=== PATIENT | female | born 1970 | race Caucasian/White ===

== ENCOUNTER 2017-05-05 18:16 | Emergency (ER) | payer SELFPAY ==
[2017-05-05 18:29] VITALS: BP 126/72
[2017-05-05] MEDS ORDERED: Bacitracin Oint 1 GM U/D Packet TOP ONE (18:35)
[2017-05-05] MEDS ORDERED: Lidocaine 1% 30 ML SDV INJECT ONE (18:35)
[2017-05-05] MEDS ORDERED: Diphtheria,Pertussis(Acell),Tetanus Vaccine 0.5 ML SDV IM ONE (18:36)
--- NOTE | 2017-05-05 18:36 | EDM.PDOC ---
ED HPI GENERAL MEDICAL PROBLEM - General Chief Complaint: Laceration Stated Complaint: CUT INDEX FINGER [id number] Time Seen by Provider: 05/05/17 18:36 Source of Information: Reports: Patient, RN, RN Notes Reviewed History Limitations: Reports: No Limitations - History of Present Illness INITIAL COMMENTS - FREE TEXT/NARRATIVE: Pt presents to the ER with c/o laceration to the right index finger. She states she was shoveling snow and caught her finger on a metal sign. She states she has not had a tetanus shot for about 20 years. Onset: Today, Sudden Location: Reports: Upper Extremity, Right Quality: Reports: Sharp Severity: Mild Improves with: Reports: None Worsens with: Reports: None - Related Data Allergies Allergy/AdvReac Type Severity Reaction Status Date / Time acetaminophen Allergy Rash Verified 05/05/17 18:24 [From Tylenol-Codeine] atorvastatin calcium Allergy Muscle Verified 05/05/17 18:24 [From Lipitor] Aches codeine phosphate Allergy Rash Verified 05/05/17 18:24 [From Tylenol-Codeine] pregabalin [From Lyrica] Allergy Rash Verified 05/05/17 18:24 propoxyphene napsylate Allergy Rash Verified 05/05/17 18:24 [From Darvocet-N] sumatriptan [From Imitrex] Allergy Headache Verified 05/05/17 18:24 sumatriptan succinate Allergy Headache Verified 05/05/17 18:24 [From Imitrex] Home Meds: Home Meds Levothyroxine 112 mcg PO DAILY 06/09/14 [History] Lisinopril [Prinivil] 10 mg PO DAILY 06/09/14 [History] Propranolol HCl 40 mg PO DAILY 06/09/14 [History] oxyCODONE HCl/Acetaminophen [Percocet 10-325 MG] 1 - 2 tab PO Q4H PRN 11/12/14 [ History] Past Medical History HEENT History: Reports: Impaired Vision, Other (See Below) Other HEENT History: WEARS CORRECTIVE LENSES - GLASSES Cardiovascular History: Reports: High Cholesterol, Hypertension Gastrointestinal History: Reports: Other (See Below) Other Gastrointestinal History: Iscemic Colitis Musculoskeletal History: Reports: Fracture Other Musculoskeletal History: R ANKLE Endocrine/Metabolic History: Reports: Other (See Below) Other Endocrine/Metabolic History: HYPOTHYRIODISM Oncologic (Cancer) History: Reports: Cervix Other Oncologic History: hysterectomy - Infectious Disease History Infectious Disease History: Reports: Hepatitis C - Past Surgical History Endocrine Surgical History: Reports: Thyroidectomy Other Endocrine Surgeries/Procedures: Partial Musculoskeletal Surgical History: Reports: Other (See Below) Other Musculoskeletal Surgeries/Procedures:: Foot surgery Social & Family History - Family History Family Medical History: Noncontributory - Tobacco Use Smoking Status *Q: Current Every Day Smoker Years of Tobacco use: 30 Packs/Tins Daily: 0.5 Used Tobacco, but Quit: No Month Tobacco Last Used: july Second Hand Smoke Exposure: No - Caffeine Use Caffeine Use: Reports: Soda - Alcohol Use Days Per Week of Alcohol Use: 0 - Recreational Drug Use Recreational Drug Use: No Drug Use in Last 12 Months: No ED ROS GENERAL - Review of Systems Review Of Systems: ROS reveals no pertinent complaints other than HPI. ED EXAM, SKIN/RASH Exam: See Below Exam Limited By: No Limitations General Appearance: Alert, WD/WN, No Apparent Distress Eye Exam: Bilateral Eye: EOMI, Normal Inspection Ears: Normal External Exam, Hearing Grossly Normal Nose: Normal Inspection Throat/Mouth: Normal Inspection, Normal Voice, No Airway Compromise Head: Atraumatic, Normocephalic Neck: Normal Inspection Respiratory/Chest: No Respiratory Distress, Lungs Clear, Normal Breath Sounds, No Accessory Muscle Use, Chest Non-Tender Cardiovascular: Normal Peripheral Pulses, Regular Rate, Rhythm, No Edema, No Gallop, No JVD, No Murmur, No Rub Peripheral Pulses: 2+: Radial (L), Radial (R) GI/Abdominal: Normal Bowel Sounds, Soft, Non-Tender, No Organomegaly, No Distention, No Abnormal Bruit, No Mass (Female) Exam: Deferred Rectal (Female) Exam: Deferred Back Exam: Normal Inspection, Full Range of Motion Extremities: Normal Inspection, Normal Range of Motion, Non-Tender, No Pedal Edema, Normal Capillary Refill Neurological: Alert, Oriented, CN II-XII Intact, Normal Cognition, Normal Gait, Normal Reflexes, No Motor/Sensory Deficits Psychiatric: Normal Affect, Normal Mood Skin: Warm, Dry, Normal Color, No Rash, Wound/Incision (horizontal laceration, 2.0cm on the right index finger, just below distal joint.) Location, Skin: Upper Extremity, Right Lymphatic: No Adenopathy ED SKIN PROCEDURES - Laceration/Wound Repair Right Distal Finger Lac/Wound length In cm: 2 Appearance: Subcutaneous, Linear Distal NVT: Neuro & Vascular Intact, No Tendon Injury Anesthetic Type: Local Local Anesthesia - Lidocaine (Xylocaine): 1% Plain Local Anesthetic Volume: 3cc Skin Prep: Chlorhexidine (Hibiciens) Exploration/Debridement/Repair: Wound Explored, In a Bloodless Field, Explored to Base, No Foreign Material Found Closed with: Sutures Suture Size: 4-0 # of Sutures: 3 Suture Type: Nylon Drain Placement: No Sterile Dressing Applied: Nurse Tetanus Status Addressed: Yes (Tetanus vaccination given) Complications: No Course - Vital Signs Last Recorded V/S: Last Vital Signs Temp 97.0 F 05/05/17 18:28 Pulse 80 05/05/17 18:28 Resp 16 05/05/17 18:28 BP 126/72 05/05/17 18:28 Pulse Ox 96 05/05/17 18:28 - Orders/Labs/Meds Orders: Active Orders 24 hr Category Date Time Status Vaccines to be Administered [RC] PER UNIT ROUTINE Care 05/05/17 18:36 Active Meds: Medications Discontinued Medications Generic Name Dose Route Start Last Admin Trade Name Freq PRN Reason Stop Dose Admin Bacitracin 1 dose 05/05/17 18:35 05/05/17 18:53 Bacitracin Oint 1 Gm TOP 05/05/17 18:36 1 dose ONETIME ONE Administration Diphtheria/Tetanus/Acell Pertussis 0.5 ml 05/05/17 18:36 05/05/17 18:51 Adacel IM 05/05/17 18:37 0.5 ml .ONCE ONE Administration Lidocaine HCl 30 ml 05/05/17 18:35 05/05/17 18:51 Xylocaine-Mpf 1% INJECT 05/05/17 18:36 30 ml ONETIME ONE Administration Departure - Departure Time of Disposition: 19:00 Disposition: Home, Self-Care 01 Clinical Impression: Laceration - Discharge Information Instructions: Laceration Care, Adult, [id number], Stitches, [place], or Adhesive Wound Closure, [id number] Forms: ED Department Discharge Additional Instructions: Keep area clean and dry. Make an appointment to have sutures removed in 7-10 days. - My Orders Last 24 Hours: My Active Orders 05/05/17 18:36 Vaccines to be Administered [RC] PER UNIT ROUTINE - Assessment/Plan Last 24 Hours: My Active Orders 05/05/17 18:36 Vaccines to be Administered [RC] PER UNIT ROUTINE
== END 2017-05-05 19:04 | disposition home or self-care (01) ==
LOC: DL.ED 18:16
DX: S61.210A Laceration without foreign body of right index finger without damage to nail, initial encounter (principal); F17.210 Nicotine dependence, cigarettes, uncomplicated; I10 Essential (primary) hypertension; Z88.6 Allergy status to analgesic agent; Z88.5 Allergy status to narcotic agent; Z88.8 Allergy status to other drugs, medicaments and biological substances; Z79.899 Other long term (current) drug therapy; Z23 Encounter for immunization; W22.8XXA Striking against or struck by other objects, initial encounter
CPT/HCPCS: 12001; 90471; 90715; 99282

== ENCOUNTER 2017-07-01 18:46 | Emergency (ER) | payer SELFPAY ==
[2017-07-01] MEDS ORDERED: Sodium Chloride 0.9% 1,000 ML IV ONE (20:01)
[2017-07-01] MEDS ORDERED: Ondansetron 4 MG/2 ML SDV IV ONE (20:02)
[2017-07-01] MEDS ORDERED: diphenhydrAMINE 50 MG/ML SDV IVPUSH ONE ×2 (20:02→22:10)
[2017-07-01] MEDS ORDERED: HYDROmorphone 1 MG/ML Syringe IVPUSH ONE ×2 (20:03→20:41)
--- NOTE | 2017-07-01 20:49 | EDM.PDOC ---
ED HPI GENERAL MEDICAL PROBLEM - General Chief Complaint: Headache Stated Complaint: MIGRAINE [id number] Time Seen by Provider: 07/01/17 19:15 Source of Information: Reports: Patient History Limitations: Reports: No Limitations - History of Present Illness INITIAL COMMENTS - FREE TEXT/NARRATIVE: C/O migraine headach, similar to previous though none for few years. Left temporal radiating to left jaw, sharp throbbing, light sensitive, nausea, emesis x2. Started today. Onset: Today Treatments SO[employer]ER [employer]: Reports: NSAIDS Left Temporal Head Pain Score (Numeric/FACES): 8 - Related Data Allergies Allergy/AdvReac Type Severity Reaction Status Date / Time acetaminophen Allergy Rash Verified 07/01/17 19:08 [From Tylenol-Codeine] atorvastatin calcium Allergy Muscle Verified 07/01/17 19:08 [From Lipitor] Aches codeine phosphate Allergy Rash Verified 07/01/17 19:08 [From Tylenol-Codeine] pregabalin [From Lyrica] Allergy Rash Verified 07/01/17 19:08 propoxyphene napsylate Allergy Rash Verified 07/01/17 19:08 [From Darvocet-N] sumatriptan [From Imitrex] Allergy Headache Verified 07/01/17 19:08 sumatriptan succinate Allergy Headache Verified 07/01/17 19:08 [From Imitrex] Home Meds: Home Meds Levothyroxine 112 mcg PO DAILY 06/09/14 [History] Lisinopril [Prinivil] 10 mg PO DAILY 06/09/14 [History] Propranolol HCl 40 mg PO DAILY 06/09/14 [History] oxyCODONE HCl/Acetaminophen [Percocet 10-325 MG] 1 - 2 tab PO Q4H PRN 11/12/14 [ History] Past Medical History HEENT History: Reports: Impaired Vision, Other (See Below) Other HEENT History: WEARS CORRECTIVE LENSES - GLASSES Cardiovascular History: Reports: High Cholesterol, Hypertension Gastrointestinal History: Reports: Other (See Below) Other Gastrointestinal History: Iscemic Colitis Musculoskeletal History: Reports: Fracture Other Musculoskeletal History: R ANKLE Endocrine/Metabolic History: Reports: Other (See Below) Other Endocrine/Metabolic History: HYPOTHYRIODISM Oncologic (Cancer) History: Reports: Cervix Other Oncologic History: hysterectomy - Infectious Disease History Infectious Disease History: Reports: Hepatitis C - Past Surgical History Endocrine Surgical History: Reports: Thyroidectomy Other Endocrine Surgeries/Procedures: Partial Musculoskeletal Surgical History: Reports: Other (See Below) Other Musculoskeletal Surgeries/Procedures:: Foot surgery Social & Family History - Family History Family Medical History: Noncontributory - Tobacco Use Smoking Status *Q: Current Every Day Smoker Years of Tobacco use: 3 Packs/Tins Daily: 10 Used Tobacco, but Quit: No Month Tobacco Last Used: july Second Hand Smoke Exposure: No - Caffeine Use Caffeine Use: Reports: Coffee, Soda - Alcohol Use Days Per Week of Alcohol Use: 0 - Recreational Drug Use Recreational Drug Use: No Drug Use in Last 12 Months: No ED ROS GENERAL - Review of Systems Review Of Systems: ROS reveals no pertinent complaints other than HPI. - Physical Exam Exam: See Below Exam Limited By: No Limitations General Appearance: Alert, Mild Distress Eye Exam: Bilateral Eye: EOMI, Normal Fundi, PERRL Ears: Normal External Exam, Normal TMs Nose: Nasal Deformity Throat/Mouth: Normal Inspection Neck: Normal Inspection, Full Range of Motion Respiratory/Chest: No Respiratory Distress, Lungs Clear, Normal Breath Sounds Cardiovascular: Normal Peripheral Pulses, Regular Rate, Rhythm GI/Abdominal: Normal Bowel Sounds, Soft Neuro Exam (Abbreviated): Alert, Oriented, Normal Cognition, No Motor/Sensory Deficits Back Exam: Normal Inspection Extremities: Normal Inspection Psychiatric: Flat Affect Skin Exam: Warm, Dry, Intact, Normal Color Course - Vital Signs Last Recorded V/S: Last Vital Signs Temp 98.2 F 07/01/17 21:24 Pulse 79 07/01/17 21:37 Resp 19 07/01/17 21:24 BP 167/98 H 07/01/17 21:37 Pulse Ox 98 07/01/17 21:24 - Orders/Labs/Meds Meds: Medications Discontinued Medications Generic Name Dose Route Start Last Admin Trade Name Freq PRN Reason Stop Dose Admin Diphenhydramine HCl 25 mg 07/01/17 20:02 07/01/17 20:19 Benadryl IVPUSH 07/01/17 20:03 25 mg ONETIME ONE Administration Diphenhydramine HCl 25 mg 07/01/17 22:10 07/01/17 22:21 Benadryl IVPUSH 07/01/17 22:11 25 mg ONETIME ONE Administration Hydromorphone HCl 1 mg 07/01/17 20:03 07/01/17 20:19 Dilaudid IVPUSH 07/01/17 20:04 1 mg ONETIME ONE Administration Hydromorphone HCl 1 mg 07/01/17 20:41 07/01/17 20:46 Dilaudid IVPUSH 07/01/17 20:42 1 mg ONETIME ONE Administration Sodium Chloride 1,000 mls @ 999 mls/hr 07/01/17 20:01 07/01/17 20:17 Normal Saline IV 07/01/17 21:01 999 mls/hr .BOLUS ONE Administration Ketorolac Tromethamine 30 mg 07/01/17 21:29 07/01/17 21:35 Toradol IVPUSH 07/01/17 21:30 30 mg ONETIME ONE Administration Metoprolol Tartrate 2.5 mg 07/01/17 21:30 07/01/17 21:37 Lopressor IVPUSH 07/01/17 21:31 2.5 mg ONETIME ONE Administration Ondansetron HCl 4 mg 07/01/17 20:02 07/01/17 20:18 Zofran IV 07/01/17 20:03 4 mg ONETIME ONE Administration Departure - Departure Time of Disposition: 22:10 Disposition: Home, Self-Care 01 Condition: Good Clinical Impression: Migraine - Discharge Information Instructions: Migraine Headache, [id number] Referrals: Alexsander Myers MD [Primary Care Provider] - Forms: ED Department Discharge Additional Instructions: rest push fluids follow up as needed
[2017-07-01 21:25] VITALS: BP 167/98
[2017-07-01] MEDS ORDERED: Ketorolac 30 MG/ML SDV IVPUSH ONE (21:29)
[2017-07-01] MEDS ORDERED: Metoprolol Tartrate 5 MG/5 ML SDV IVPUSH ONE (21:30)
== END 2017-07-01 22:28 | disposition home or self-care (01) ==
LOC: DL.ED 18:46
DX: G43.909 Migraine, unspecified, not intractable, without status migrainosus (principal); E78.00 Pure hypercholesterolemia, unspecified; I10 Essential (primary) hypertension; E03.9 Hypothyroidism, unspecified; F17.210 Nicotine dependence, cigarettes, uncomplicated; Z88.5 Allergy status to narcotic agent; Z88.8 Allergy status to other drugs, medicaments and biological substances; Z79.899 Other long term (current) drug therapy
CPT/HCPCS: 96361; 96374; 96375; 96376; 99283; J1170; J1200; J1885; J2405; J7030; 99284; J3490